=== PATIENT | female | born 1965 | race Caucasian/White ===

== ENCOUNTER 2018-04-11 17:03 | Emergency (ER) | payer OTHER ==
[~2018-04-11] VITALS: Ht 162.6 cm; Wt 78.9 kg
[~2018-04-11 17:03] MED LIST: CEFUROXIME500 MG PO
[2018-04-11 17:37] LABS: ABSOLUTE BASOPHILS 0.1 thou/uL (0.0-0.2); ABSOLUTE EOSINOPHILS 0.1 thou/uL (0.0-0.7); ABSOLUTE LYMPHOCYTES 2.9 thou/uL (0.8-5.3); ABSOLUTE MONOCYTES 0.7 thou/uL (0.0-1.2); ABSOLUTE NEUTROPHILS 6.3 thou/uL (1.6-8.1); BASOPHILS 0.8 %; EOSINOPHILS 1.1 %; HEMATOCRIT 47.6 % (37.0-47.0); HEMOGLOBIN 16.4 gm/dL (12.0-15.0); LYMPHOCYTES 28.8 %; MCH 34.5 pg (26.0-34.0); MCHC 34.5 g/dL (28.0-37.0); MCV 99.9 fL (80.0-100.0); MONOCYTES 6.8 %; MPV 7.4 fl. (7.2-11.1); NUCLEATED RBCS 0 /100WBC; PLATELET COUNT* 296 thou/uL (150-400); POLYS 62.5 %; RBC 4.76 mil/uL (4.20-5.00); RDW-CV 13.9 % (10.5-14.5); WBC 10.1 thou/uL (4.0-11.0)
[2018-04-11 17:38] LABS: URINE BILIRUBIN NEGATIVE (Negative); URINE BLOOD TRACE (Negative); URINE CLARITY CLEAR; URINE COLOR YELLOW; URINE GLUCOSE-RANDOM NEGATIVE (Negative); URINE KETONES NEGATIVE (Negative); URINE LEUKOCYTES-REFLEX NEGATIVE (Negative); URINE NITRITE-REFLEX NEGATIVE (Negative); URINE PROTEIN NEGATIVE (Negative); URINE UROBILINOGEN 0.2 E.U./dl (0.2-1.0)
[2018-04-11 17:49] LABS: CALCIUM 8.7 mg/dL (8.5-10.1); CREATININE 0.6 mg/dL (0.6-1.3); POTASSIUM 3.7 mmol/L (3.5-5.1)
[2018-04-11 17:53] LABS: ALBUMIN 3.7 g/dL (3.4-5.0); TOTAL BILIRUBIN 0.4 mg/dL (<0.1-1.0); TOTAL PROTEIN 7.6 g/dL (6.4-8.2)
[2018-04-11] MEDS ORDERED: TRAMADOL 50 MG50 MG PO (19:37)
[2018-04-11 19:51] VITALS: BP 143/75
--- NOTE | 2018-04-12 10:29 | EKG ---
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
== END 2018-04-11 19:51 | disposition home or self-care (01) ==
LOC: M.ERS 17:03
PROVIDERS: Nurse Practitioner Family
DX: M53.3 Sacrococcygeal disorders, not elsewhere classified (principal); K59.00 Constipation, unspecified; F17.210 Nicotine dependence, cigarettes, uncomplicated; Z88.1 Allergy status to other antibiotic agents

== ENCOUNTER 2020-06-18 17:57 | Inpatient (IN) | payer OTHER ==
[~2020-06-18] VITALS: Ht 162.6 cm; Wt 77.6 kg
[~2020-06-18 17:57] MED LIST changes: +TRAMADOL 50 MG50 MG PO
[2020-06-18 18:13] VITALS: BP 115/80
[2020-06-18 18:38] LABS: ABSOLUTE BASOPHILS 0.1 thou/uL (0.0-0.2); ABSOLUTE EOSINOPHILS 1.2 thou/uL (0.0-0.7); ABSOLUTE LYMPHOCYTES 2.5 thou/uL (0.8-5.3); ABSOLUTE MONOCYTES 0.9 thou/uL (0.0-1.2); ABSOLUTE NEUTROPHILS 8.6 thou/uL (1.6-8.1); BASOPHILS 0.7 %; HEMATOCRIT 42.3 % (37.0-47.0); HEMOGLOBIN 14.3 gm/dL (12.0-15.0); LYMPHOCYTES 18.7 %; MCH 31.1 pg (26.0-34.0); MCHC 33.9 g/dL (28.0-37.0); MCV 91.9 fL (80.0-100.0); MONOCYTES 6.5 %; MPV 6.2 fl. (7.2-11.1); NUCLEATED RBCS 0 /100WBC; PLATELET COUNT* 595 thou/uL (150-400); POLYS 65.1 %; RBC 4.61 mil/uL (4.20-5.00); RDW-CV 13.2 % (10.5-14.5); WBC 13.3 thou/uL (4.0-11.0)
[2020-06-18 18:46] LABS: CALCIUM 8.9 mg/dL (8.5-10.1); CREATININE 0.8 mg/dL (0.6-1.3); POTASSIUM 3.9 mmol/L (3.5-5.1)
[2020-06-18 18:57] LABS: TOTAL BILIRUBIN 0.2 mg/dL (<0.1-1.0); TOTAL PROTEIN 7.3 g/dL (6.4-8.2)
[2020-06-18 19:34] LABS: APTT 31.1 Seconds (25.0-31.3); PROTIME 10.5 Seconds (9.20-11.50)
[2020-06-18 21:00] LABS: INFLUENZA A ANTIGEN Negative (Negative); INFLUENZA B ANTIGEN Negative (Negative)
[2020-06-18 22:18] VITALS: BP 136/90
[2020-06-18 22:30] VITALS: BP 108/88
[2020-06-19 04:18] VITALS: BP 115/81
[2020-06-19 07:30] VITALS: BP 115/79
[2020-06-19 08:16] LABS: HEMATOCRIT 45.5 % (37.0-47.0); HEMOGLOBIN 15.4 gm/dL (12.0-15.0); MCH 31.4 pg (26.0-34.0); MCHC 33.9 g/dL (28.0-37.0); MCV 92.6 fL (80.0-100.0); MPV 6.4 fl. (7.2-11.1); NUCLEATED RBCS 0 /100WBC; PLATELET COUNT* 661 thou/uL (150-400); RBC 4.91 mil/uL (4.20-5.00); WBC 17.9 thou/uL (4.0-11.0)
[2020-06-19 08:22] LABS: PROTIME 10.3 Seconds (9.20-11.50)
[2020-06-19 08:25] LABS: ALBUMIN 3.3 g/dL (3.4-5.0); CALCIUM 9.7 mg/dL (8.5-10.1); POTASSIUM 4.5 mmol/L (3.5-5.1); TOTAL BILIRUBIN 0.3 mg/dL (<0.1-1.0); TOTAL PROTEIN 8.2 g/dL (6.4-8.2)
[2020-06-19 08:43] LABS: ABSOLUTE LYMPHOCYTES 2.5 thou/uL (0.8-5.3); ABSOLUTE MONOCYTES 0.5 thou/uL (0.0-1.2); ABSOLUTE NEUTROPHILS 14.9 thou/uL (1.6-8.1); PLATELET ESTIMATE ADEQUATE
--- NOTE | 2020-06-19 09:36 | EKG ---
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
[2020-06-19 12:00] VITALS: BP 124/79
[2020-06-19 15:50] VITALS: BP 116/68
[2020-06-19 20:20] VITALS: BP 118/73
[2020-06-20 00:53] VITALS: BP 111/58
[2020-06-20 04:00] VITALS: BP 120/75
[2020-06-20 04:38] LABS: ABSOLUTE BASOPHILS 0.1 thou/uL (0.0-0.2); ABSOLUTE LYMPHOCYTES 1.5 thou/uL (0.8-5.3); ABSOLUTE MONOCYTES 0.7 thou/uL (0.0-1.2); ABSOLUTE NEUTROPHILS 24.5 thou/uL (1.6-8.1); BASOPHILS 0.5 %; EOSINOPHILS 0.1 %; LYMPHOCYTES 5.4 %; MCH 31.4 pg (26.0-34.0); MCHC 34.2 g/dL (28.0-37.0); MCV 91.8 fL (80.0-100.0); MONOCYTES 2.7 %; MPV 6.6 fl. (7.2-11.1); NUCLEATED RBCS 0 /100WBC; PLATELET COUNT* 611 thou/uL (150-400); POLYS 91.3 %; RBC 4.47 mil/uL (4.20-5.00); RDW-CV 13.2 % (10.5-14.5); WBC 26.8 thou/uL (4.0-11.0)
[2020-06-20 05:04] LABS: ALBUMIN 2.8 g/dL (3.4-5.0); CALCIUM 9.1 mg/dL (8.5-10.1); CREATININE 0.7 mg/dL (0.6-1.3); POTASSIUM 3.9 mmol/L (3.5-5.1); TOTAL BILIRUBIN 0.1 mg/dL (<0.1-1.0)
[2020-06-20 07:30] VITALS: BP 126/83
[2020-06-20 13:13] LABS: BF RBC 56436 /mm3; TOTAL CELL COUNT 3964 /mm3
[2020-06-20 13:22] LABS: CLARITY CLOUDY; TOTAL VOLUME 1960 ml
[2020-06-20 13:24] LABS: BF LYMPHOCYTES 60 %; BF MONOCYTES 37 %; BF POLYS 3 %
[2020-06-20 13:25] LABS: SOURCE PLEURAL FLUID
[2020-06-20 16:00] VITALS: BP 132/78
[2020-06-20 20:30] VITALS: BP 147/95
[2020-06-21 05:09] LABS: ABSOLUTE BASOPHILS 0.1 thou/uL (0.0-0.2); ABSOLUTE EOSINOPHILS 1.4 thou/uL (0.0-0.7); ABSOLUTE LYMPHOCYTES 2.3 thou/uL (0.8-5.3); ABSOLUTE MONOCYTES 1.3 thou/uL (0.0-1.2); ABSOLUTE NEUTROPHILS 14.4 thou/uL (1.6-8.1); BASOPHILS 0.5 %; EOSINOPHILS 7.3 %; HEMATOCRIT 42.9 % (37.0-47.0); HEMOGLOBIN 14.4 gm/dL (12.0-15.0); LYMPHOCYTES 11.8 %; MCH 31.2 pg (26.0-34.0); MCHC 33.6 g/dL (28.0-37.0); MCV 92.7 fL (80.0-100.0); MONOCYTES 6.5 %; MPV 6.4 fl. (7.2-11.1); NUCLEATED RBCS 0 /100WBC; PLATELET COUNT* 591 thou/uL (150-400); POLYS 73.9 %; RBC 4.63 mil/uL (4.20-5.00); RDW-CV 13.1 % (10.5-14.5); WBC 19.4 thou/uL (4.0-11.0)
[2020-06-21 05:37] LABS: ALBUMIN 2.8 g/dL (3.4-5.0); CALCIUM 8.9 mg/dL (8.5-10.1); CREATININE 0.8 mg/dL (0.6-1.3); POTASSIUM 3.8 mmol/L (3.5-5.1); TOTAL BILIRUBIN 0.2 mg/dL (<0.1-1.0); TOTAL PROTEIN 6.7 g/dL (6.4-8.2)
[2020-06-21 07:30] VITALS: BP 113/78
[2020-06-21 13:15] VITALS: BP 130/81
[2020-06-21 15:58] VITALS: BP 129/77
[2020-06-21 20:00] VITALS: BP 121/87
[2020-06-22 02:06] LABS: BODY FLUID PH 7.4 (Not Estab.)
[2020-06-22 07:30] VITALS: BP 120/83
[2020-06-22 09:07] LABS: BODY FLUID PROTEIN 4.7 g/dL (())
[2020-06-22] MEDS ORDERED: CEFDINIR300 MG PO (09:34)
[2020-06-22 16:40] VITALS: BP 124/80
[2020-06-22 21:00] VITALS: BP 118/73
[2020-06-23] VITALS (7 sets, daily range): BP systolic 117–171; BP diastolic 60–86
[2020-06-23] MEDS ORDERED: PERCOCET 5-3251 EACH PO (10:52)
[2020-06-24 07:51] VITALS: BP 142/86
[2020-06-24 07:51] LABS: HEMATOCRIT 42.3 % (37.0-47.0); HEMOGLOBIN 13.9 gm/dL (12.0-15.0); MCH 30.4 pg (26.0-34.0); MCHC 32.9 g/dL (28.0-37.0); MCV 92.2 fL (80.0-100.0); MPV 6.7 fl. (7.2-11.1); NUCLEATED RBCS 0 /100WBC; PLATELET COUNT* 632 thou/uL (150-400); RBC 4.59 mil/uL (4.20-5.00); RDW-CV 13.3 % (10.5-14.5); WBC 34.2 thou/uL (4.0-11.0)
[2020-06-24 08:03] LABS: CALCIUM 8.5 mg/dL (8.5-10.1); CREATININE 0.8 mg/dL (0.6-1.3); POTASSIUM 3.9 mmol/L (3.5-5.1)
[2020-06-24 08:31] LABS: ABSOLUTE LYMPHOCYTES 0.7 thou/uL (0.8-5.3); ABSOLUTE MONOCYTES 2.1 thou/uL (0.0-1.2); ABSOLUTE NEUTROPHILS 31.5 thou/uL (1.6-8.1); PLATELET ESTIMATE ADEQUATE
[2020-06-24 16:10] VITALS: BP 128/73
[2020-06-24 19:40] VITALS: BP 144/45
[2020-06-25 03:42] LABS: HEMATOCRIT 41.8 % (37.0-47.0); HEMOGLOBIN 13.8 gm/dL (12.0-15.0); MCH 30.3 pg (26.0-34.0); MCV 91.8 fL (80.0-100.0); MPV 6.4 fl. (7.2-11.1); RBC 4.56 mil/uL (4.20-5.00); RDW-CV 13.6 % (10.5-14.5); WBC 26.5 thou/uL (4.0-11.0)
[2020-06-25 04:22] LABS: ALBUMIN 2.7 g/dL (3.4-5.0); CALCIUM 8.7 mg/dL (8.5-10.1); POTASSIUM 4.2 mmol/L (3.5-5.1); TOTAL BILIRUBIN 0.2 mg/dL (<0.1-1.0); TOTAL PROTEIN 6.4 g/dL (6.4-8.2)
[2020-06-25 04:34] LABS: CREATININE 0.8 mg/dL (0.6-1.3)
[2020-06-25 07:30] VITALS: BP 138/82
[2020-06-25 09:06] LABS: SOURCE THORACENTESIS
[2020-06-25 12:06] LABS: BODY FLUID PROTEIN 4.2 g/dL (())
[2020-06-25 16:03] VITALS: BP 111/79
--- NOTE | 2020-06-25 17:06 | PATH ---
[facility] [address] [place] [address] PATHOLOGY RPT PROCEDURE Name: CAESAR TREVINO Room: [address] IN [facility]#: [id number] Admission: 06/18/20 Date of : 69 Discharge: Report #: [id number] Path Case #: [id number] Note [facility] Accession Number: [id number] TESTS RESULT FLAG UNITS REF RANGE LAB Clinician Provided Cytology Information No. of containers..01 Other (Miscellaneous) Source: [A] 01 LEFT PLEURAL FLUID DIAGNOSIS: [A] 02 LEFT PLEURAL FLUID ABUNDANT MALIGNANT CELLS CHARACTERISTIC OF BRONCHOGENIC ADENOCARCINOMA. SEE COMMENT. THIS INTERPRETATION INCLUDES EVALUATION OF A CELL BLOCK. COMMENT Seen in the ThinPrep as well as the cell block are abundant malignant cells present singly and in aggregates/gland-like structures. A panel of properly-controlled immunohistochemical studies performed on the cell block show the malignant cells to have the following characteristics, supporting the diagnosis: TTF-1: Positive Estrogen receptor: Negative CDX-2: Negative CK7: Positive CK20: Negative Mammaglobin: Negative Preliminary findings relayed to Dr. Marie at approximately 12:50 on 06/22/2020. Reviewed with Dr. Radha Rebollar who agrees with the diagnosis. Signed out by: Helio Arreola MD, Pathologist NPI- [id number] Performed by: Rosa Elena Mitchell, Tile Mason ([facility]) Gross description: 01 15ML, RED ORANGE, 1 TP 1 CB /LCS 06/25/2020 1011 Local FLAG LEGEND: L-Low Normal,H-High Normal,LL-Alert Low,HH-Alert High <-Panic Low,>-Panic High,A-Abnormal,AA-Critical Abnormal Performed at: [facility] [address] [place] [address] Pantera Yusuf MD, 02 [facility] [place] [address] PATHOLOGY RPT PROCEDURE Name: CAESAR TREVINO Room: [address] IN .R.#: [id number] Admission: 06/18/20 Date of : 69 Discharge: Report #: [id number] Path Case #: [id number] [address] , [place] [address] Helio Arreola MD, Specimen Comment: A courtesy copy of this report has been sent to [phone] Specimen Comment: [phone] Specimen Comment: Report sent to / DR GONZALEZ Performed at: 01 [facility] [place] [id number] [facility] [address], [place], [place] [id number] MD Pantera Yusuf MD Phone: [phone]
[2020-06-25 18:15] VITALS: BP 111/79
[2020-06-25 20:00] VITALS: BP 135/82
[2020-06-26 04:01] LABS: ABSOLUTE BASOPHILS 0.1 thou/uL (0.0-0.2); ABSOLUTE EOSINOPHILS 0.1 thou/uL (0.0-0.7); ABSOLUTE LYMPHOCYTES 1.2 thou/uL (0.8-5.3); ABSOLUTE MONOCYTES 0.9 thou/uL (0.0-1.2); ABSOLUTE NEUTROPHILS 20.2 thou/uL (1.6-8.1); BASOPHILS 0.4 %; EOSINOPHILS 0.4 %; HEMATOCRIT 42.3 % (37.0-47.0); HEMOGLOBIN 14.2 gm/dL (12.0-15.0); LYMPHOCYTES 5.4 %; MCH 30.9 pg (26.0-34.0); MCHC 33.5 g/dL (28.0-37.0); MCV 92.4 fL (80.0-100.0); MONOCYTES 3.9 %; MPV 6.8 fl. (7.2-11.1); NUCLEATED RBCS 0 /100WBC; PLATELET COUNT* 618 thou/uL (150-400); POLYS 89.9 %; RBC 4.58 mil/uL (4.20-5.00); RDW-CV 13.4 % (10.5-14.5); WBC 22.4 thou/uL (4.0-11.0)
[2020-06-26 04:33] LABS: ALBUMIN 2.8 g/dL (3.4-5.0); CALCIUM 8.5 mg/dL (8.5-10.1); CREATININE 0.8 mg/dL (0.6-1.3); MAGNESIUM 2.1 mg/dL (1.8-2.4); POTASSIUM 4.3 mmol/L (3.5-5.1); TOTAL BILIRUBIN 0.1 mg/dL (<0.1-1.0); TOTAL PROTEIN 6.5 g/dL (6.4-8.2)
[2020-06-26 07:50] VITALS: BP 136/89
[2020-06-26 09:08] VITALS: BP 111/79
[2020-06-26 10:46] VITALS: BP 111/79
[2020-06-26] MEDS ORDERED: AMOX TR-K CLV1 EAC4 PO (12:30)
[2020-06-26] MEDS ORDERED: ACETAMINOPHEN325 M1 PO (12:30)
[2020-06-26] MEDS ORDERED: PREDNISONE 5 MG5 M1 PO (12:30)
[2020-06-26] MEDS ORDERED: DULCOLAX5 MG PO (12:30)
[2020-06-26] MEDS ORDERED: IPRAT-ALBUT 0.5-3 ML INH (12:30)
[2020-06-26] MEDS ORDERED: NEBULIZER NEB (12:33)
--- NOTE | 2020-06-27 10:07 | PATH ---
[address] [address] PATHOLOGY RPT PROCEDURE Name: BLANQUITACHELASusiCAESAR D Room: [address]#: [id number] Admission: 06/18/20 Date of : [birth year] Discharge: 06/26/20 Report #: [id number] Path Case #: [id number] Note [facility] Accession Number: [id number] TESTS RESULT FLAG UNITS REF RANGE LAB Clinician Provided Cytology Information No. of containers..01 Other (Miscellaneous) Source: [A] 01 L. PLEURAL DIAGNOSIS: [A] 02 L. PLEURAL POSITIVE FOR MALIGNANT CELLS. ADENOCARCINOMA, COMPATIBLE WITH BRONCHOGENIC PRIMARY. SEE COMMENT. THIS INTERPRETATION INCLUDES EVALUATION OF A CELL BLOCK. COMMENT: Abundant malignant cells identical to that seen with the recent prior left pleural fluid are present ([id number]). (LETICIA/db; 06/26/2020) Signed out by: 02 Helio Arreola MD, Pathologist NPI- [id number] Performed by: Rasheeda Mitchell, Weatherization Director ([facility]) Gross description: 01 100 ML, CLDY RED, 1 TP 1CB /LCS 06/26/2020 1131 Local FLAG LEGEND: L-Low Normal,H-High Normal,LL-Alert Low,HH-Alert High <-Panic Low,>-Panic High,A-Abnormal,AA-Critical Abnormal Performed at: [address] [place] [address] Pantera Yusuf MD, [address] [address] Helio Arreola MD, Specimen Comment: A courtesy copy of this report has been sent to [phone] Specimen Comment: Report sent to DR GONZALEZ Performed at: [address], [place], [place] [id number] MD Pantera Yusuf MD Phone: [phone]
--- NOTE | 2020-06-28 12:20 | CON ---
[address] [address] CONSULTATION Name: CAESAR TREVINO Room: [address]#: [id number] Admission: 06/18/20 Attend Phys: Leonard Guzman MD Discharge: 06/26/20 Date of : 69 Report #: [id number] THIS REPORT FOR: //name// cc: JONNY - No family physician/PCP JONNY - No family physician/PCP ~ THIS REPORT FOR: //name// CC: [facility] physician/PCP Leonard Guzman DATE OF SERVICE: 06/22/2020 REQUESTING PHYSICIAN: Consult has been requested by Virgie Hayward NP INDICATION FOR CONSULTATION: Pleural effusion, exudative. HISTORY OF PRESENT ILLNESS: A 54-year-old female with extensive history of smoking around a pack a day, has been smoking for several decades. Also, appears to have COPD, not previously diagnosed, has had some shortness of breath on exertion as well as a cough for the last 3 months. The patient says that these symptoms are particularly worse over the last 2 weeks. She does report having had a thick white sputum. There was one episode of fever and chills on Thursday as well. The patient has also been complaining of chest pain and back pain associated with respiration and coughing. The patient at this time does not have a runny nose or sore throat. There is no swelling of lower extremities and no calf pain. The patient is currently not complaining of heartburn either. Upon arrival, the patient was tested for COVID-19. The COVID-19 antigen was negative. The patient also did have a CTA chest performed, which shows essentially a total collapse of the left lung. There is a large pleural effusion on the left side. The patient did undergo a thoracentesis. A 1900 mL of exudative pleural fluid was removed. There is a chest x-ray done subsequently, which shows a significant pneumothorax on the left side. A significant pleural effusion is still present, although reduced in size. The patient does report having had improvement in shortness of breath after the thoracentesis. The patient was treated with 3 doses of Solu-Medrol 125 mg. She has also been on cefdinir. She still does have some white sputum production. The patient says that there has been an increase in her shortness of breath again over the last [address] Arreola, our pathologist, called me today and advised me that there are malignant cells consistent with adenocarcinoma noted in the patient's pleural fluid. He also informed me that the likelihood is that he has enough of a cell block to be able to do detailed markers on this fluid. [place] [address] CONSULTATION Name: CAESAR TREVINO Room: [address] IN M.R.#: [id number] Admission: 06/18/20 Attend Phys: Leonard Guzman MD Discharge: 06/26/20 Date of : 69 Report #: [id number] a repeat chest x-ray now. It shows a significant increase in the pleural effusion. Again, the pneumothorax is not seen on the new chest x-ray. The patient does report that over the last 2 days, she has had an increase in shortness of breath again. She also did appear to be tachycardic at the time of my evaluation. The patient, however, is continuing to saturate around 94%. I asked the patient to 12 questions for review of systems, the patient's review of systems is negative except as mentioned above. PAST MEDICAL HISTORY: Colon resection, diverticulitis, colonoscopy in 09/2017. SOCIAL HISTORY: Smoker 1 pack a day, has been smoking for several decades. Two glasses of wine a week. No known history of illegal drug use. ALLERGIES: THE PATIENT IS REPORTED TO HAVE HAD ITCHING WITH FLAGYL. FAMILY HISTORY: There is no pertinent family history known at this time. CURRENT MEDICATIONS: List in [employer] [facility] reviewed. HOME MEDICATIONS: The patient was not on any home medications. PHYSICAL EXAMINATION: VITAL SIGNS: The patient does appear to have shortness of breath at rest. She was tachycardic at time of my examination with a heart rate around 110, blood pressure 120/83, saturating 94%. She is not on supplemental oxygen. Respiratory rate was mildly elevated to around 20. She is afebrile with a temperature of 36.9. HEENT: Head is normocephalic and atraumatic. Pupils are equal and reactive. There is no throat erythema. There is no thrush in her throat. NECK: Does not show raised JVP, asymmetry, mass or lymph nodes. CHEST: Decreased expansion on the left side compared with the right. On auscultation, breath sounds are decreased bilaterally. They are reduced more on the left side compared with the right. Their expirations are prolonged. HEART: Regular, mild tachycardia is noted. ABDOMEN: Soft and nontender. EXTREMITIES: Lower extremities show no edema, no calf tenderness. SKIN: Dry and intact. NEUROLOGICAL: Moves all extremities bilaterally equally and spontaneously with no focal deficit identified. LABORATORY DATA: The patient's chest x-rays are as discussed above. The patient's lab work including CBC, chemistries as well as coagulation studies are in [employer] [facility]. These are reviewed. Pleural fluid analysis as discussed above and the rest is in [employer] [facility], which I also reviewed. COVID-19 screen was negative. [place] [address] CONSULTATION Name: CAESAR TREVINO Room: [address] IN [facility].#: [id number] Admission: 06/18/20 Attend Phys: Leonard Guzman MD Discharge: 06/26/20 Date of : 69 Report #: [id number] ASSESSMENT AND PLAN: 1. 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 I spoke with Dr. Arreola. He, as above, did advise me that the likelihood is that he should be able to define this further as a sufficient cell block is available. If this is the case, then hopefully we will be able to avoid other diagnostic procedures. I suspect that the patient has a metastatic adenocarcinoma of lung origin. The patient's shortness of breath is clearly worse yesterday. Pleural effusion is also significantly increased in size. We will go ahead and proceed with a repeat thoracentesis today. We will obtain an Oncology consult as well. The patient may need a PleurX catheter placement down the line. We will still send off another sample for cytology and microbiology as well from the pleural fluid been collected today. 2. Chronic obstructive pulmonary disease exacerbation. The patient appears to have previously undiagnosed chronic obstructive pulmonary disease. She does appear to have bronchospasm at this time. I will restart Solu-Medrol. I will also restart nebulized bronchodilators. I would favor transferring the patient to telemetry. 3. Pulmonary infiltrates. I added azithromycin for atypical coverage considering that the entire left lung was collapsed initially. I would like to get some anaerobic coverage as well and this is why I switched cefdinir over to Augmentin. 4. Deep venous thrombosis prophylaxis, Lovenox. Thanks for this consultation. <ELECTRONICALLY SIGNED> By: Hitesh Marie MD 06/28/20 1220 1446 1530Hitesh Marie MD /nt
== END 2020-06-26 13:39 | disposition home or self-care (01) | DRG 180 ==
LOC: M.ERS 17:57 → M.TBA-ER 20:23 → M.2W 20:23 → M.ORTHSURG 06-20 19:45 → M.2W 06-22 18:16 → M.ORTHSURG 06-24 00:06
PROVIDERS: Family Medicine; Internal Medicine; Internal Medicine Critical Care Medicine; Nurse Practitioner; Nurse Practitioner Family; ADMIT Internal Medicine; ATTEND Internal Medicine
PROC: 0W9B3ZZ Drainage of Left Pleural Cavity, Percutaneous Approach (ICD-10-PCS; principal; 2020-06-19)
PROC: 0W9B3ZZ Drainage of Left Pleural Cavity, Percutaneous Approach (ICD-10-PCS; 2020-06-22)
DX: C34.90 Malignant neoplasm of unspecified part of unspecified bronchus or lung (principal); J96.01 Acute respiratory failure with hypoxia; J44.1 Chronic obstructive pulmonary disease with (acute) exacerbation; E44.1 Mild protein-calorie malnutrition; J91.0 Malignant pleural effusion; B96.89 Other specified bacterial agents as the cause of diseases classified elsewhere; D72.829 Elevated white blood cell count, unspecified; F17.210 Nicotine dependence, cigarettes, uncomplicated; R73.9 Hyperglycemia, unspecified; Z20.828 Contact with and (suspected) exposure to other viral communicable diseases; Z90.49 Acquired absence of other specified parts of digestive tract; Z88.1 Allergy status to other antibiotic agents; Z68.29 Body mass index [BMI] 29.0-29.9, adult

== ENCOUNTER → 2020-07-09 | Outpatient (CLI) | payer OTHER ==
[~2020-07-09] MED LIST changes: +ACETAMINOPHEN325 M1 PO; +AMOX TR-K CLV1 EAC4 PO; +CEFDINIR300 MG PO; +DULCOLAX5 MG PO; +IPRAT-ALBUT 0.5-3 ML INH; +NEBULIZER NEB; +PERCOCET 5-3251 EACH PO; +PREDNISONE 5 MG5 M1 PO
== END ==
LOC: M.ULTRA 08:58
PROVIDERS: ATTEND Internal Medicine Hematology & Oncology
DX: J90 Pleural effusion, not elsewhere classified (principal); J44.1 Chronic obstructive pulmonary disease with (acute) exacerbation; C34.92 Malignant neoplasm of unspecified part of left bronchus or lung; Z79.899 Other long term (current) drug therapy; Z98.890 Other specified postprocedural states; Z83.3 Family history of diabetes mellitus; Z88.8 Allergy status to other drugs, medicaments and biological substances

== ENCOUNTER 2020-07-15 03:34 | Inpatient (IN) | payer MEDICAID ==
[2020-07-15] VITALS (7 sets, daily range): BP systolic 106–136; BP diastolic 79–90
[~2020-07-15] VITALS: Ht 162.6 cm; Wt 76.2 kg
--- NOTE | ~2020-07-15 | IN ---
[facility] [address] [place] [address] INTERIM NOTE Name: CAESAR TREVINO Room: [address] IN [facility]#: [id number] Admission: 07/15/20 Attend Phys: Janes Smith, Discharge: Date of : 69 Report #: [id number] THIS REPORT FOR: //name// cc: JONNY - Enma family physician/PCP JONNY - No family physician/PCP ~ CC: [facility] physician/PCP Janes Smith DATE OF SERVICE: 07/18/2020 SUBJECTIVE: She is feeling better. She had a PleurX catheter placed. Her pain is controlled better. Denies headaches, fevers. OBJECTIVE: VITAL SIGNS: Blood pressure 114/73, heart rate is 75, temperature 98.0, respirations 16. HEART: Normal S1, S2. LUNGS: Clear to auscultation in place. ABDOMEN: Soft. MENTAL STATUS: Alert and oriented x 3. LABORATORY DATA: White count 19.4, hemoglobin 12.9, platelets 656. MRI of the brain does not show any parenchymal disease. ASSESSMENT AND PLAN: 1. Malignant pleural effusion, status post PleurX catheter placement. 2. Lung cancer. Continue follow up with Dr. Cedeno to initiate chemotherapy. ____ input is appreciated. The patient chooses she might have palliative radiation to painful lung region. Pain well controlled at this point. Thrombocytosis, reactive. By: 2143 2200MD laurie Stevens
[2020-07-15 04:07] LABS: ABSOLUTE BASOPHILS 0.1 thou/uL (0.0-0.2); ABSOLUTE EOSINOPHILS 1.3 thou/uL (0.0-0.7); ABSOLUTE LYMPHOCYTES 1.8 thou/uL (0.8-5.3); ABSOLUTE MONOCYTES 1.1 thou/uL (0.0-1.2); ABSOLUTE NEUTROPHILS 10.3 thou/uL (1.6-8.1); BASOPHILS 0.7 %; EOSINOPHILS 8.6 %; HEMATOCRIT 36.5 % (37.0-47.0); HEMOGLOBIN 12.2 gm/dL (12.0-15.0); LYMPHOCYTES 12.5 %; MCHC 33.4 g/dL (28.0-37.0); MCV 92.6 fL (80.0-100.0); MONOCYTES 7.8 %; MPV 6.5 fl. (7.2-11.1); NUCLEATED RBCS 0 /100WBC; PLATELET COUNT* 409 thou/uL (150-400); POLYS 70.4 %; RBC 3.94 mil/uL (4.20-5.00); RDW-CV 14.9 % (10.5-14.5); WBC 14.7 thou/uL (4.0-11.0)
[2020-07-15 04:22] LABS: CREATININE 0.8 mg/dL (0.6-1.3); POTASSIUM 4.2 mmol/L (3.5-5.1)
[2020-07-15 04:26] LABS: APTT 28.5 Seconds (25.0-31.3); PROTIME 10.3 Seconds (9.20-11.50)
[2020-07-15 04:32] LABS: ALBUMIN 2.7 g/dL (3.4-5.0); TOTAL BILIRUBIN 0.5 mg/dL (<0.1-1.0); TOTAL PROTEIN 7.1 g/dL (6.4-8.2)
[2020-07-15] MEDS ORDERED: PERCOCET 5-3251 EACH PO (12:36)
[2020-07-15] MEDS ORDERED: TRAMADOL 50 MG50 MG PO (12:37)
--- NOTE | 2020-07-15 12:53 | EKG ---
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[place] : 1965 Requested By: Cesar Combs Order Number: [id number] MD: Markus Rouse Measurements Intervals [place] Rate: 98 P: 59 MD: 143 QRS: 63 QRSD: 81 T: 60 QT: 320 QTc: 409 Interpretive Statements Sinus rhythm Low voltage, extremity and precordial leads Baseline wander in lead(s) V1,V2,V3,V4 Compared to ECG 06/18/2020 19:00:38 No significant changes Electronically Signed On 07-15-2020 12:53:09 CRANE HELPER by Markus Rouse [email or web address] <ELECTRONICALLY SIGNED> By: Markus Rouse MD, FACC 07/15/20 1253 0345 0345 Markus Rouse MD, FACC /EPI
[2020-07-16 04:00] VITALS: BP 135/91
[2020-07-16 08:00] VITALS: BP 141/98
[2020-07-16 14:05] VITALS: BP 127/83
[2020-07-16 16:00] VITALS: BP 127/79
[2020-07-16 20:00] VITALS: BP 128/86
[2020-07-17] VITALS: BP 122/88
[2020-07-17 04:00] VITALS: BP 139/96
[2020-07-17 07:12] LABS: HEMATOCRIT 36.9 % (37.0-47.0); HEMOGLOBIN 12.1 gm/dL (12.0-15.0); MCH 30.6 pg (26.0-34.0); MCHC 32.7 g/dL (28.0-37.0); MCV 93.5 fL (80.0-100.0); MPV 6.4 fl. (7.2-11.1); RBC 3.94 mil/uL (4.20-5.00); RDW-CV 14.8 % (10.5-14.5); WBC 17.9 thou/uL (4.0-11.0)
[2020-07-17 07:26] LABS: ALBUMIN 2.4 g/dL (3.4-5.0); CALCIUM 9.1 mg/dL (8.5-10.1); CREATININE 0.8 mg/dL (0.6-1.3); MAGNESIUM 2.1 mg/dL (1.8-2.4); POTASSIUM 4.7 mmol/L (3.5-5.1); TOTAL BILIRUBIN 0.2 mg/dL (<0.1-1.0)
[2020-07-17 08:27] VITALS: BP 150/106
[2020-07-17 13:00] VITALS: BP 136/85
[2020-07-17 16:00] VITALS: BP 144/93
[2020-07-17 19:30] LABS: BF RBC 48910 /mm3; TOTAL CELL COUNT 817 /mm3
[2020-07-17 19:43] LABS: CLARITY CLOUDY; TOTAL VOLUME 70 ml
[2020-07-17 20:00] VITALS: BP 151/93
[2020-07-17 20:58] LABS: BF POLYS 29 %; BODY FLUID BANDS 7 %; SOURCE PLEURAL
[2020-07-17 20:59] LABS: BF LYMPHOCYTES 21 %; BF MONOCYTES 3 %; BF TISSUE 40 /100 WBC
[2020-07-18] VITALS: BP 140/90
[2020-07-18 05:02] VITALS: BP 137/84
[2020-07-18 05:58] LABS: HEMATOCRIT 39.4 % (37.0-47.0); HEMOGLOBIN 12.9 gm/dL (12.0-15.0); MCH 30.5 pg (26.0-34.0); MCHC 32.6 g/dL (28.0-37.0); MCV 93.4 fL (80.0-100.0); MPV 6.6 fl. (7.2-11.1); RBC 4.22 mil/uL (4.20-5.00); RDW-CV 14.7 % (10.5-14.5); WBC 19.7 thou/uL (4.0-11.0)
[2020-07-18 06:02] LABS: HEMATOCRIT 39.5 % (37.0-47.0); HEMOGLOBIN 12.9 gm/dL (12.0-15.0); MCH 30.7 pg (26.0-34.0); MCHC 32.6 g/dL (28.0-37.0); MCV 94.4 fL (80.0-100.0); MPV 6.5 fl. (7.2-11.1); NUCLEATED RBCS 0 /100WBC; PLATELET COUNT* 656 thou/uL (150-400); RBC 4.18 mil/uL (4.20-5.00); RDW-CV 14.7 % (10.5-14.5); WBC 19.4 thou/uL (4.0-11.0)
[2020-07-18 06:53] LABS: ALBUMIN 2.6 g/dL (3.4-5.0); CALCIUM 9.1 mg/dL (8.5-10.1); CREATININE 0.8 mg/dL (0.6-1.3); MAGNESIUM 2.3 mg/dL (1.8-2.4); POTASSIUM 4.7 mmol/L (3.5-5.1); TOTAL BILIRUBIN 0.2 mg/dL (<0.1-1.0); TOTAL PROTEIN 7.1 g/dL (6.4-8.2)
[2020-07-18 07:02] LABS: ABSOLUTE LYMPHOCYTES 1.6 thou/uL (0.8-5.3); ABSOLUTE MONOCYTES 0.8 thou/uL (0.0-1.2); ABSOLUTE NEUTROPHILS 17.1 thou/uL (1.6-8.1); PLATELET ESTIMATE ADEQUATE
[2020-07-18 08:08] VITALS: BP 149/106
[2020-07-18 12:00] VITALS: BP 114/73
--- NOTE | 2020-07-18 14:06 | CON ---
[address] [address] CONSULTATION Name: CAESAR TREVINO Room: [address] IN M.R.#: [id number] Admission: 07/15/20 Attend Phys: Janes Smith, Discharge: Date of : [birth year] Report #: [id number] THIS REPORT FOR: //name// cc: JONNY - No family physician/PCP JONNY - No family physician/PCP ~ DATE OF SERVICE: 07/16/2020 REQUESTING PHYSICIAN: Dr. Guzman. REASON FOR CONSULTATION: Lung cancer. HISTORY OF PRESENT ILLNESS: The patient is a 54-year-old woman, who was recently diagnosed with stage 4 non-small cell lung cancer. She has seen my partner, Dr. Cedeno. She is in the process of workup and is to start chemotherapy. She has recurrent pleural effusion. She had thoracentesis done twice. She presented to Emergency Room with severe chest pain, was found to have a recurrent pleural effusion and postobstructive pneumonia. Oncology consult is requested. She has complaints of severe upper back, chest pain. She states that pain is not controlled. She is receiving morphine 2 mg IV on p.r.n. basis. She has complaints of shortness of breath. Denies fevers or chills. Denies headaches, dizziness. PAST MEDICAL HISTORY: Significant for more than [id number] history of smoking. FAMILY HISTORY: Noncontributory. REVIEW OF SYSTEMS: See above. PHYSICAL EXAMINATION: GENERAL: Reveals a well-developed, well-nourished female, in mild acute distress because of pain. VITAL SIGNS: Blood pressure 135/91, heart rate is 87, temperature 97.5, respirations 18. HEENT: Does not reveal thrush. NECK: Supple. CARDIAC: Normal S1, S2. LUNGS: Decreased breath sounds in the lower and mid lung field, right is clear. There is no supraclavicular lymphadenopathy. MENTAL STATUS: Alert and oriented x 3. LABORATORY DATA: White count 14.7, hemoglobin 12.2, platelets 409. Sodium 133. Chest CT shows 4.7 cm mass, medial aspect of left apex, near complete consolidation of the left lower lobe, probably secondary to central obstructing endobronchial mass. Multiple subcentimeter right noncalcified nodules consistent with metastatic disease, large, [place] [address] CONSULTATION Name: CAESAR TREVINO Room: [address] IN [facility]#: [id number] Admission: 07/15/20 Attend Phys: Janes Smith, Discharge: Date of : 69 Report #: [id number] pleural effusion. ASSESSMENT AND PLAN: 1. Chest pain, poorly controlled. Recommend to start fentanyl patch 12.5 mcg per hour, Percocet 5 mg 1-2 every 6 hours p.r.n. Continue IV morphine as needed. 2. Lung cancer. The patient is to start chemotherapy. Unfortunately, she does not have insurance. She is in process of obtaining insurance. Dr. Cedeno is trying to get track from the [facility] for ____. Plan to consult Dr. Moreno for evaluation for palliative radiation. 3. Pleural effusion. The patient is scheduled for thoracentesis. Agree with PleurX catheter placement. Thank you very much for allowing me to participate in care of this patient. We will follow up the patient with you. <ELECTRONICALLY SIGNED> By: Juancho Mckeon MD 07/18/20 1406 2157 2318Juancho Mckeon MD /nt
[2020-07-18 16:36] VITALS: BP 165/103
[2020-07-18 21:00] VITALS: BP 150/87
[2020-07-19] VITALS: BP 130/75
[2020-07-19 04:00] VITALS: BP 149/86
[2020-07-19 05:08] LABS: ABSOLUTE BASOPHILS 0.1 thou/uL (0.0-0.2); ABSOLUTE LYMPHOCYTES 1.5 thou/uL (0.8-5.3); ABSOLUTE MONOCYTES 1.6 thou/uL (0.0-1.2); ABSOLUTE NEUTROPHILS 13.6 thou/uL (1.6-8.1); BASOPHILS 0.3 %; EOSINOPHILS 5.7 %; HEMATOCRIT 38.7 % (37.0-47.0); HEMOGLOBIN 12.4 gm/dL (12.0-15.0); LYMPHOCYTES 8.6 %; MCH 30.1 pg (26.0-34.0); MCHC 32.1 g/dL (28.0-37.0); MCV 93.7 fL (80.0-100.0); MONOCYTES 9.2 %; MPV 6.3 fl. (7.2-11.1); NUCLEATED RBCS 0 /100WBC; PLATELET COUNT* 619 thou/uL (150-400); POLYS 76.2 %; RBC 4.13 mil/uL (4.20-5.00); RDW-CV 14.7 % (10.5-14.5); WBC 17.8 thou/uL (4.0-11.0)
[2020-07-19 05:35] LABS: ALBUMIN 2.3 g/dL (3.4-5.0); CALCIUM 8.8 mg/dL (8.5-10.1); CREATININE 0.8 mg/dL (0.6-1.3); MAGNESIUM 2.1 mg/dL (1.8-2.4); POTASSIUM 4.2 mmol/L (3.5-5.1); TOTAL BILIRUBIN 0.1 mg/dL (<0.1-1.0); TOTAL PROTEIN 6.2 g/dL (6.4-8.2)
[2020-07-19 08:10] VITALS: BP 131/91
[2020-07-19 13:08] LABS: BODY FLUID AMYLASE 35 U/L (())
[2020-07-19 13:56] VITALS: BP 113/80
[2020-07-19 14:07] LABS: BODY FLUID LDH 2018 IU/L (())
--- NOTE | 2020-07-19 15:07 | PATH ---
[address] [address] PATHOLOGY RPT PROCEDURE Name: BLANQUITACHELASusiCAESAR D Room: [address] IN [facility]#: [id number] Admission: 07/15/20 Date of : 69 Discharge: Report #: [id number] Path Case #: [id number] Note [facility] Accession Number: [id number] TESTS RESULT FLAG UNITS REF RANGE LAB Clinician Provided Cytology Information No. of containers..01 Other (Miscellaneous) Source: [A] 01 PLEURAL FLUID DIAGNOSIS: [A] 01 PLEURAL FLUID POSITIVE FOR MALIGNANT CELLS. ADENOCARCINOMA IS PRESENT. THIS INTERPRETATION INCLUDES EVALUATION OF A CELL BLOCK. COMMENT, THIS CASE WAS ALSO REVIEWED BY DR. JANAE STANLEY. PAST HISTORY OF ADENOCARCINOMA NOTED. THIS CASE WAS DISCUSSED WITH DR. AMNA LOMBARDI ON 07/19/2020 AT 11 AM. Pathologist ICD10: 01 C34.90 Signed out by: Rasheeda Palacios MD, Pathologist NPI- [id number] Performed by: Rasheeda Rand, Billing Clinician ([facility]) Gross description: 15ML, CLOUDY RED, 1 TP 1 CB /LCS 07/18/2020 1549 Local FLAG LEGEND: L-Low Normal,H-High Normal,LL-Alert Low,HH-Alert High <-Panic Low,>-Panic High,A-Abnormal,AA-Critical Abnormal Performed at: [address] [place] [address] John Palacios MD, Specimen Comment: A courtesy copy of this report has been sent to [phone] Specimen Comment: [phone] Specimen Comment: Report sent to / DR SALES Performed at: [address], [place], [place] [id number] MD John Palacios MD Phone: [phone]
--- NOTE | 2020-07-19 16:38 | 2DMMODE ---
[place] [address] 2 D/M-MODE ECHOCARDIOGRAM Name: CAESAR TREVINO Room: [address] IN [facility].#: [id number] Admission: 07/15/20 Attend Phys: Janes Lagunas Discharge: Date of : 69 Date of Service: 07/19/20 1638 Report #: [id number] THIS REPORT FOR: cc: FAM - No family physician/PCP FAM - No family physician/PCP Markus Rouse MD [facility] ~ ADDENDUM APPROVED REPORT Study performed: 07/16/2020 10:27:53 EXAM: Comprehensive 2D, Doppler, and color-flow Echocardiogram Patient Location: Bedside BSA: 1.83 HR: 81 bpm BP: 135/91 mmHg Other Information Study Quality: Technically Difficult Indications Pleural Effusion 2D Dimensions IVSd: 11.22 (7-11mm) LVOT Diam: 17.61 (18-24mm) LVDd: 31.14 mm PWd: 10.75 (7-11mm) Ascending Ao: 31.57 (22-36mm) LVDs: 24.47 (25-40mm) Aortic Root: 27.46 mm Volumes Left Atrial Volume (Systole) LA ESV Index: 13.70 mL/m2 Aortic Valve AoV Peak Miguel.: 1.35 m/s AO Peak Gr.: 7.34 mmHg LVOT Max P.82 mmHg AO Mean Gr.: 4.63 mmHg LVOT Mean P.13 mmHg LVOT Max V: 1.40 m/s AO V2 VTI: 25.10 cm LVOT Mean V: 0.95 m/s KWAKU (VTI): 2.42 cm2 LVOT V1 VTI: 24.91 cm Mitral Valve E/A Ratio: 0.71 [place] [address] 2 D/M-MODE ECHOCARDIOGRAM Name: CAESAR TREVINO Room: [address] IN [facility].#: [id number] Admission: 07/15/20 Attend Phys: Janes Lagunas Discharge: Date of : 69 Date of Service: 07/19/20 1638 Report #: [id number] MV Decel. Time: 227.91 ms MV E Max Miguel.: 0.60 m/s MV PHT: 66.09 ms MVA (PHT): 3.33 cm2 TDI E/Lateral E': 7.50 E/Medial E': 6.67 Medial E' Miguel.: 0.09 m/s Lateral E' Miguel.: 0.08 m/s Pulmonary Valve PV Peak Miguel.: 0.92 m/s PV Peak Gr.: 3.40 mmHg Tricuspid Valve RAP Estimate: 5.00 mmHg TR Peak Gr.: 19.07 mmHg RVSP: 24.07 mmHg PA Pressure: 24.07 mmHg Left Ventricle The left ventricle is normal size. left ventricular outflow tract gradient noted suggesting mild hypertrophic cardiomyopathy There is normal left ventricular wall thickness. Left ventricular systolic function is normal. The left ventricular ejection fraction is within the normal range. LVEF is 60-65%. Grade I - abnormal relaxation pattern. Right Ventricle The right ventricle is normal size. The right ventricular systolic function is normal. Atria The left atrium size is normal. The right atrium size is normal. Aortic Valve The aortic valve is normal in structure. No aortic regurgitation is present. There is no aortic valvular stenosis. Mitral Valve The mitral valve is normal in structure. There is no mitral valve regurgitation noted. No evidence of mitral valve stenosis. Tricuspid Valve The tricuspid valve is normal in structure. There is trace tricuspid [place] [address] 2 D/M-MODE ECHOCARDIOGRAM Name: CAESAR TREVINO Room: [address]#: [id number] Admission: 07/15/20 Attend Phys: Janes Lagunas Discharge: Date of : 69 Date of Service: 07/19/20 1638 Report #: [id number] Pulmonic Valve Pulmonic valve is not well visualized. There is no pulmonic valvular regurgitation. Great Vessels The aortic root is normal in size. IVC is not well visualized. Pericardium There is no pericardial effusion. Pleural effusion is present. <Conclusion> Left ventricular systolic function is normal. The left ventricular ejection fraction is within the normal range. left ventricular outflow tract gradient noted suggesting mild hypertrophic cardiomyopathy There is normal left ventricular wall thickness. <ELECTRONICALLY SIGNED> By: Markus Rouse MD, FACC 07/19/20 1638 1638 1638 Markus Rouse MD, FACC /INF
[2020-07-19 18:44] VITALS: BP 145/88
[2020-07-19 20:00] VITALS: BP 148/93
[2020-07-20 00:45] VITALS: BP 104/73
[2020-07-20 02:06] LABS: BODY FLUID PH 7.5 (Not Estab.)
[2020-07-20 04:40] LABS: HEMATOCRIT 39.4 % (37.0-47.0); HEMOGLOBIN 12.9 gm/dL (12.0-15.0); MCH 30.5 pg (26.0-34.0); MCHC 32.7 g/dL (28.0-37.0); MCV 93.4 fL (80.0-100.0); MPV 6.1 fl. (7.2-11.1); RBC 4.22 mil/uL (4.20-5.00); WBC 19.6 thou/uL (4.0-11.0)
[2020-07-20 05:30] VITALS: BP 156/72
[2020-07-20 05:51] LABS: ALBUMIN 2.3 g/dL (3.4-5.0); CALCIUM 8.8 mg/dL (8.5-10.1); CREATININE 0.7 mg/dL (0.6-1.3); MAGNESIUM 2.2 mg/dL (1.8-2.4); POTASSIUM 4.1 mmol/L (3.5-5.1); TOTAL BILIRUBIN 0.1 mg/dL (<0.1-1.0); TOTAL PROTEIN 6.1 g/dL (6.4-8.2)
[2020-07-20 09:20] VITALS: BP 142/100
[2020-07-20 16:00] VITALS: BP 131/77
[2020-07-20 20:00] VITALS: BP 132/82
[2020-07-21] VITALS: BP 131/88
[2020-07-21 04:42] LABS: CALCIUM 8.8 mg/dL (8.5-10.1); CREATININE 0.7 mg/dL (0.6-1.3); MAGNESIUM 2.4 mg/dL (1.8-2.4); POTASSIUM 4.4 mmol/L (3.5-5.1)
[2020-07-21 04:44] LABS: ABSOLUTE EOSINOPHILS 1.4 thou/uL (0.0-0.7); ABSOLUTE LYMPHOCYTES 2.4 thou/uL (0.8-5.3); ABSOLUTE MONOCYTES 1.2 thou/uL (0.0-1.2); ABSOLUTE NEUTROPHILS 16.6 thou/uL (1.6-8.1); BASOPHILS 0.2 %; EOSINOPHILS 6.2 %; HEMATOCRIT 39.1 % (37.0-47.0); HEMOGLOBIN 12.9 gm/dL (12.0-15.0); LYMPHOCYTES 11.3 %; MCH 30.4 pg (26.0-34.0); MCHC 32.9 g/dL (28.0-37.0); MCV 92.4 fL (80.0-100.0); MONOCYTES 5.6 %; MPV 6.1 fl. (7.2-11.1); NUCLEATED RBCS 0 /100WBC; PLATELET COUNT* 686 thou/uL (150-400); POLYS 76.7 %; RBC 4.23 mil/uL (4.20-5.00); RDW-CV 14.9 % (10.5-14.5); WBC 21.7 thou/uL (4.0-11.0)
[2020-07-21 08:00] VITALS: BP 160/89
[2020-07-21 16:30] VITALS: BP 126/85
[2020-07-22] VITALS: BP 141/93
[2020-07-22 03:56] LABS: HEMATOCRIT 39.5 % (37.0-47.0); HEMOGLOBIN 13.1 gm/dL (12.0-15.0); MCH 30.4 pg (26.0-34.0); MCV 92.1 fL (80.0-100.0); RBC 4.29 mil/uL (4.20-5.00); RDW-CV 14.5 % (10.5-14.5)
[2020-07-22 04:24] LABS: ALBUMIN 2.4 g/dL (3.4-5.0); CALCIUM 8.6 mg/dL (8.5-10.1); CREATININE 0.8 mg/dL (0.6-1.3); MAGNESIUM 2.3 mg/dL (1.8-2.4); POTASSIUM 4.1 mmol/L (3.5-5.1); TOTAL BILIRUBIN 0.2 mg/dL (<0.1-1.0); TOTAL PROTEIN 6.2 g/dL (6.4-8.2)
[2020-07-22 08:00] VITALS: BP 114/80
[2020-07-22 12:16] VITALS: BP 110/70; BP 143/96
[2020-07-22 16:03] VITALS: BP 129/79
[2020-07-22 20:00] VITALS: BP 137/94
[2020-07-22 20:57] LABS: SOURCE PLEURAL
[2020-07-23] VITALS: BP 105/76
[2020-07-23 05:18] LABS: HEMATOCRIT 40.8 % (37.0-47.0); HEMOGLOBIN 13.3 gm/dL (12.0-15.0); MCH 30.1 pg (26.0-34.0); MCHC 32.7 g/dL (28.0-37.0); RBC 4.43 mil/uL (4.20-5.00); RDW-CV 15.1 % (10.5-14.5); WBC 25.2 thou/uL (4.0-11.0)
[2020-07-23 05:47] LABS: ALBUMIN 2.6 g/dL (3.4-5.0); CALCIUM 8.6 mg/dL (8.5-10.1); CREATININE 0.7 mg/dL (0.6-1.3); MAGNESIUM 2.3 mg/dL (1.8-2.4); POTASSIUM 4.2 mmol/L (3.5-5.1); TOTAL BILIRUBIN 0.2 mg/dL (<0.1-1.0); TOTAL PROTEIN 6.4 g/dL (6.4-8.2)
[2020-07-23 08:30] VITALS: BP 115/76
[2020-07-23] MEDS ORDERED: DILAUDID2 MG PO (10:52)
[2020-07-23] MEDS ORDERED: DURAGESIC1 EAC2 TOP (11:01)
[2020-07-23 19:35] VITALS: BP 115/76
== END 2020-07-23 20:30 | disposition home or self-care (01) | DRG 180 ==
LOC: M.ERS 03:34 → M.TBA-ER 05:01 → M.2W 09:50
PROVIDERS: Emergency Medicine Emergency Medical Services; Internal Medicine; Internal Medicine Critical Care Medicine; ADMIT Family Medicine; ATTEND Family Medicine
PROC: 0W9B30Z Drainage of Left Pleural Cavity with Drainage Device, Percutaneous Approach (ICD-10-PCS; 2020-07-15)
PROC: B5181ZA Fluoroscopy of Superior Vena Cava using Low Osmolar Contrast, Guidance (ICD-10-PCS; principal; 2020-07-23)
PROC: 0JH63XZ Insertion of Tunneled Vascular Access Device into Chest Subcutaneous Tissue and Fascia, Percutaneous Approach (ICD-10-PCS; principal; 2020-07-23)
PROC: 02H633Z Insertion of Infusion Device into Right Atrium, Percutaneous Approach (ICD-10-PCS; principal; 2020-07-23)
PROC: B548ZZA Ultrasonography of Superior Vena Cava, Guidance (ICD-10-PCS; principal; 2020-07-23)
DX: C34.90 Malignant neoplasm of unspecified part of unspecified bronchus or lung (principal); J15.6 Pneumonia due to other Gram-negative bacteria; J96.21 Acute and chronic respiratory failure with hypoxia; J90 Pleural effusion, not elsewhere classified; E87.1 Hypo-osmolality and hyponatremia; E46 Unspecified protein-calorie malnutrition; J44.0 Chronic obstructive pulmonary disease with (acute) lower respiratory infection; F17.210 Nicotine dependence, cigarettes, uncomplicated; R73.9 Hyperglycemia, unspecified; J44.9 Chronic obstructive pulmonary disease, unspecified; G89.3 Neoplasm related pain (acute) (chronic); Z68.28 Body mass index [BMI] 28.0-28.9, adult; Z88.8 Allergy status to other drugs, medicaments and biological substances; Z90.49 Acquired absence of other specified parts of digestive tract; Z79.891 Long term (current) use of opiate analgesic; Z79.899 Other long term (current) drug therapy